=== PATIENT | female | born 1955 | race Caucasian/White ===

== ENCOUNTER 2022-07-15 10:58 | Day surgery (SDC) | payer BC ==
[~2022-07-15 10:58] MED LIST: Lactated Ringers 1,000 ML IV SCH
[2022-07-15] MEDS ORDERED: Propofol 200 MG/20 ML SDV ONE ×2 (11:03→11:38)
[2022-07-15] MEDS ORDERED: fentaNYL 100 MCG/2 ML SDV ONE (11:03)
[2022-08-05] MEDS ORDERED: Lactated Ringers 1,000 ML IV SCH (08:30)
== END 2022-07-15 12:53 | disposition home or self-care (01) ==
LOC: VM.SDS 10:58
PROVIDERS: ATTEND Surgery
DX: Z12.11 Encounter for screening for malignant neoplasm of colon (principal); D12.0 Benign neoplasm of cecum; J01.40 Acute pansinusitis, unspecified; F32.A Depression, unspecified; E78.5 Hyperlipidemia, unspecified; M16.12 Unilateral primary osteoarthritis, left hip; I10 Essential (primary) hypertension; E78.00 Pure hypercholesterolemia, unspecified; Z88.0 Allergy status to penicillin; Z88.8 Allergy status to other drugs, medicaments and biological substances; Z91.048 Other nonmedicinal substance allergy status; Z79.899 Other long term (current) drug therapy
CPT/HCPCS: 00812; J2704; J3010; J7120